=== PATIENT | female | born 1950 | race Caucasian/White ===

== ENCOUNTER → 2018-05-22 | Outpatient (CLI) | payer MEDICARE ==
[~2018-05-22] MED LIST: CARAFATE 1GM1 G PO; CLARITIN 1010 MG/TAB PO; DYAZIDE 25 MG-31 CAP PO; LEXAPRO20 MG PO; NIRAVAM0.25 MG PO; PRILOSEC 20MG20 MG PO; TUMS500 MG PO; TYLENOL 8 HR PO; VASOTEC 10M10 MG/TAB PO; ZOCOR 40MG40 MG PO
== END ==
LOC: COL.RAD 10:20
DX: M79.671 Pain in right foot (principal)
CPT/HCPCS: J3301; Q9967

== ENCOUNTER → 2018-11-06 | Outpatient (CLI) | payer MEDICARE | LOC: COL.RAD 11-05 09:00 | DX: M19.079 Primary osteoarthritis, unspecified ankle and foot (principal) | CPT/HCPCS: J3301; Q9967 ==

== ENCOUNTER → 2019-05-21 | Outpatient (CLI) | payer MEDICARE | LOC: COL.RAD 08:03 | DX: M19.071 Primary osteoarthritis, right ankle and foot (principal) | CPT/HCPCS: J3301; Q9967 ==

== ENCOUNTER → 2020-11-10 | Outpatient (CLI) | payer MEDICARE | LOC: COL.RAD 12:25 | DX: M25.571 Pain in right ankle and joints of right foot (principal); M25.572 Pain in left ankle and joints of left foot | CPT/HCPCS: J3301; Q9967 ==

== ENCOUNTER → 2021-08-28 | Outpatient (CLI) | payer MEDICARE, OTHER | LOC: COL.RAD 08-10 13:00 | DX: M25.571 Pain in right ankle and joints of right foot (principal); M25.572 Pain in left ankle and joints of left foot | CPT/HCPCS: J3301; Q9967 ==